=== PATIENT | male | born 1970 | race Asian ===

== ENCOUNTER 2016-09-17 23:01 | Emergency (ER) | payer SELFPAY ==
[~2016-09-17] VITALS: Ht 170.2 cm; Wt 109.1 kg
[~2016-09-17 23:01] MED LIST: RISP.5 PO
[2016-09-17 23:27] LABS: BASOPHILS % (AUTO) 0.5 % (0.0-2.0); EOSINOPHILS % (AUTO) 0.2 % (1.0-6.0); HEMOGLOBIN 14.5 g/dL (13.5-17.5); LYMPHOCYTES # (AUTO) 1.1 K/uL (1.0-4.8); LYMPHOCYTES % (AUTO) 7.5 % (22.0-44.0); MEAN CORPUSCULAR HGB CONC 32.9 G/dL (31.0-37.0); MEAN CORPUSCULAR VOLUME 91 fL (80-100); MONOCYTES # (AUTO) 1.4 K/uL (0.1-1.0); MONOCYTES % (AUTO) 9.5 % (2.0-9.0); NEUTROPHILS # (AUTO) 12.2 K/uL (1.8-7.7); NEUTROPHILS % (AUTO) 82.3 % (40.0-70.0); PLATELET COUNT (AUTO) 324 K/uL (150-450); RED BLOOD CELL COUNT(AUTO) 4.82 MIL/uL (4.50-5.90); RED CELL DISTRIBUTION WIDTH 13.6 % (11.5-14.5); WHITE BLOOD COUNT (AUTO) 14.8 K/uL (4.5-11.0)
[2016-09-17 23:37] LABS: ANION GAP 11 mmol/L (8-16); CALCIUM, TOTAL 8.8 mg/dL (8.8-10.5); CARBON DIOXIDE 27 mmol/L (22-29); CHLORIDE 104 mmol/L (98-107); CREATININE 1.44 mg/dL (0.60-1.30); GLOMERULAR FILTR. RATE CALC 52 mL/min (>60); POTASSIUM 3.6 mmol/L (3.5-5.1); SODIUM SERUM 142 mmol/L (136-145); UREA NITROGEN, BLOOD 20 mg/dL (7-18)
[2016-09-17 23:42] LABS: ALANINE AMINOTRANSFERASE 25 U/L (12-78); ALBUMIN 3.6 g/dL (3.4-5.0); ASPARTATE AMINOTRANSFERASE 25 U/L (15-37); BILIRUBIN,TOTAL 0.5 mg/dL (0.1-1.0); TOTAL PROTEIN, SERUM 7.4 g/dL (6.4-8.2)
[2016-09-18] MEDS ORDERED: HALOPERIDOL 5 MG TABLET PO ONE (01:00)
[2016-09-18] MEDS ORDERED: RisperiDONE CONC 3 MG/3 ML SOLUTION ORAL.SYG PO ONE (01:00)
[2016-09-18] MEDS ORDERED: LORazepam 2 MG TABLET PO ONE (01:00)
[2016-09-18] MEDS ORDERED: RisperiDONE 3 MG TABLET PO ONE (01:15)
[2016-09-18 09:40] VITALS: BP 128/86
== END 2016-09-18 11:54 | disposition home or self-care (01) ==
LOC: EMS 23:02
DX: F25.9 Schizoaffective disorder, unspecified (principal); F15.159 Other stimulant abuse with stimulant-induced psychotic disorder, unspecified
CPT/HCPCS: 36415; 80053; 80307; 85025; 99285; G0480

== ENCOUNTER 2016-10-07 05:50 | Inpatient (IN) | payer MEDICAID ==
[~2016-10-07] VITALS: Ht 170.2 cm; Wt 82.5 kg
[2016-10-07 06:25] LABS: BASOPHILS % (AUTO) 0.3 % (0.0-2.0); EOSINOPHILS % (AUTO) 0 % (1.0-6.0); HEMOGLOBIN 14.8 g/dL (13.5-17.5); LYMPHOCYTES # (AUTO) 0.7 K/uL (1.0-4.8); LYMPHOCYTES % (AUTO) 3.4 % (22.0-44.0); MEAN CORPUSCULAR HEMOGLOBIN 29.8 pg (26.0-34.0); MEAN CORPUSCULAR HGB CONC 32.9 G/dL (31.0-37.0); MEAN CORPUSCULAR VOLUME 91 fL (80-100); MONOCYTES # (AUTO) 1.6 K/uL (0.1-1.0); MONOCYTES % (AUTO) 7.6 % (2.0-9.0); NEUTROPHILS # (AUTO) 18.4 K/uL (1.8-7.7); PLATELET COUNT (AUTO) 338 K/uL (150-450); RED BLOOD CELL COUNT(AUTO) 4.96 MIL/uL (4.50-5.90); RED CELL DISTRIBUTION WIDTH 13.4 % (11.5-14.5); WHITE BLOOD COUNT (AUTO) 20.8 K/uL (4.5-11.0)
[2016-10-07 06:28] LABS: NEUTROPHILS % (AUTO) 88.7 % (40.0-70.0)
[2016-10-07 06:37] LABS: ANION GAP 17 mmol/L (8-16); CALCIUM, TOTAL 9.5 mg/dL (8.8-10.5); CARBON DIOXIDE 20 mmol/L (22-29); CHLORIDE 104 mmol/L (98-107); CREATININE 2.15 mg/dL (0.60-1.30); GLOMERULAR FILTR. RATE CALC 33 mL/min (>60); POTASSIUM 3.4 mmol/L (3.5-5.1); SODIUM SERUM 141 mmol/L (136-145); UREA NITROGEN, BLOOD 26 mg/dL (7-18)
[2016-10-07 06:42] LABS: ALANINE AMINOTRANSFERASE 11 U/L (12-78); ASPARTATE AMINOTRANSFERASE 26 U/L (15-37); BILIRUBIN,TOTAL 0.6 mg/dL (0.1-1.0); TOTAL PROTEIN, SERUM 7.7 g/dL (6.4-8.2)
[2016-10-07] MEDS ORDERED: MUPIROCIN CALCIUM 2% 22 GM OINTMENT TP ONE (07:00)
[2016-10-07] MEDS ORDERED: PERTUSS(ACELL),DIPH,TET VAC/PF 0.5 ML VIAL IM ONE (07:00)
[2016-10-07] MEDS: SULFAMETHOX/TRIMETH DS 800-160 MG/TABLET PO ONE ×2 (07:12→07:47)
[2016-10-07] MEDS ORDERED: LORazepam 2 MG/ML VIAL IM ONE (07:30)
[2016-10-07] MEDS ORDERED: HALOPERIDOL LACTATE 5 MG/ML VIAL IM ONE (07:30)
[2016-10-07] MEDS ORDERED: DiphenhydrAMINE HCL 50 MG/ML VIAL IM ONE (07:30)
[2016-10-07] MEDS ORDERED: MAGNESIUM SULFATE 2 GM, MVI, ADULT NO.1 WITH VIT K 10 ML, THIAMINE HCL 100 MG, FOLIC AC... IV ONE ×5 (07:45)
[2016-10-07] MEDS ORDERED: SODIUM CHLORIDE 0.9% 1,000 ML IV ONE (07:45)
[2016-10-07] MEDS ORDERED: HALOPERIDOL 5 MG TABLET PO PRN (08:15)
[2016-10-07] MEDS ORDERED: ZOLPIDEM TARTRATE 10 MG TABLET PO PRN (08:15)
[2016-10-07] MEDS ORDERED: LORazepam 2 MG TABLET PO PRN (08:15)
[2016-10-07 11:16] LABS: APPEARANCE,URINE CLEAR (CLEAR); GLUCOSE, URINE (UA) NEGATIVE (NEGATIVE); KETONES,URINE TRACE mg/dL (NEGATIVE); LEUKOCYTE ESTERASE ,URINE NEGATIVE (NEGATIVE); OCCULT BLOOD,URINE NEGATIVE (NEGATIVE); PROTEIN,URINE NEGATIVE (NEGATIVE)
[2016-10-07 11:21] LABS: ADD UA MICROSCOPIC NO
[2016-10-07 12:29] VITALS: BP 131/53
[2016-10-07] MEDS: RisperiDONE 1 MG TABLET PO SCH (17:00)
[2016-10-08] MEDS: RisperiDONE 1 MG TABLET PO SCH ×2 (09:00→17:26)
[2016-10-08 09:14] VITALS: BP 142/85
[2016-10-08] MEDS: BACITRACIN 28.4 GM OINTMENT TP SCH ×3 (14:23→17:26)
[2016-10-08] MEDS ORDERED: ACETAMINOPHEN 325 MG TABLET PO PRN ×2 (18:15→20:15)
[2016-10-08 18:27] VITALS: BP 146/83
[2016-10-08] MEDS ORDERED: IBUPROFEN 400 MG TABLET PO PRN (20:15)
[2016-10-08 20:34] VITALS: BP 138/88
[2016-10-08] MEDS: AmLODIPine BESYLATE 5 MG TABLET PO SCH (20:35)
[2016-10-09 07:12] LABS: HEMOGLOBIN A1C 5.2 % (4.5-6.2)
[2016-10-09 07:16] LABS: CHOL/HDL RATIO 2.5 (4.2-7.3); THYROID STIMULATING HORMONE 1.3 uIU/mL (0.36-3.74)
[2016-10-09] MEDS: RisperiDONE 1 MG TABLET PO SCH ×2 (09:26→16:14)
[2016-10-09] MEDS: BACITRACIN 28.4 GM OINTMENT TP SCH ×2 (09:26→16:14)
[2016-10-09 09:48] VITALS: BP 140/69
[2016-10-09 12:19] VITALS: BP 139/70
[2016-10-09] MEDS: CEPHALEXIN MONOHYDRATE 500 MG CAPSULE PO SCH (16:10)
[2016-10-09] MEDS: SULFAMETHOX/TRIMETH DS 800-160 MG/TABLET PO SCH (16:10)
[2016-10-09 20:17] VITALS: BP 115/60
[2016-10-09] MEDS: AmLODIPine BESYLATE 5 MG TABLET PO SCH (20:18)
[2016-10-10] MEDS: CEPHALEXIN MONOHYDRATE 500 MG CAPSULE PO SCH ×4 (01:06→16:06)
[2016-10-10 06:52] LABS: BASOPHILS % (AUTO) 0.4 % (0.0-2.0); EOSINOPHILS % (AUTO) 3.1 % (1.0-6.0); HEMATOCRIT 44.4 % (41-53); HEMOGLOBIN 14.5 g/dL (13.5-17.5); LYMPHOCYTES # (AUTO) 1.6 K/uL (1.0-4.8); LYMPHOCYTES % (AUTO) 22.1 % (22.0-44.0); MEAN CORPUSCULAR HEMOGLOBIN 30.2 pg (26.0-34.0); MEAN CORPUSCULAR HGB CONC 32.7 G/dL (31.0-37.0); MEAN CORPUSCULAR VOLUME 92 fL (80-100); MONOCYTES # (AUTO) 0.8 K/uL (0.1-1.0); MONOCYTES % (AUTO) 10.6 % (2.0-9.0); NEUTROPHILS # (AUTO) 4.7 K/uL (1.8-7.7); NEUTROPHILS % (AUTO) 63.8 % (40.0-70.0); PLATELET COUNT (AUTO) 324 K/uL (150-450); RED CELL DISTRIBUTION WIDTH 13.9 % (11.5-14.5); WHITE BLOOD COUNT (AUTO) 7.4 K/uL (4.5-11.0)
[2016-10-10 08:05] VITALS: BP 126/70
[2016-10-10] MEDS: SULFAMETHOX/TRIMETH DS 800-160 MG/TABLET PO SCH ×2 (08:40→17:17)
[2016-10-10] MEDS: RisperiDONE 1 MG TABLET PO SCH ×2 (08:40→17:17)
[2016-10-10] MEDS: BACITRACIN 28.4 GM OINTMENT TP SCH ×2 (08:45→17:16)
[2016-10-10] MEDS ORDERED: POVIDONE-IODINE 30 GM OINTMENT TP ONE (11:53)
[2016-10-10] MEDS ORDERED: BUPIVACAINE HCL/PF 0.25% 30 ML VIAL ONE (11:54)
[2016-10-10] MEDS ORDERED: LIDOCAINE HCL/PF 1% 30 ML VIAL ONE (11:54)
[2016-10-10] MEDS ORDERED: BUPIVACAINE HCL/PF 0.5% 30 ML VIAL ONE (11:58)
[2016-10-10] MEDS ORDERED: PROPOFOL 1% 20 ML VIAL IVP ONE (12:00)
[2016-10-10 13:21] LABS: ANION GAP 9 mmol/L (8-16); CARBON DIOXIDE 27 mmol/L (22-29); CHLORIDE 105 mmol/L (98-107); CREATININE 0.81 mg/dL (0.60-1.30); GLOMERULAR FILTR. RATE CALC > 60 mL/min (>60); POTASSIUM 4.5 mmol/L (3.5-5.1); SODIUM SERUM 141 mmol/L (136-145); UREA NITROGEN, BLOOD 13 mg/dL (7-18)
[2016-10-10] MEDS ORDERED: RINGERS SOLUTION,LACTATED 1,000 ML IV ONE ×2 (14:01→14:15)
[2016-10-10] MEDS ORDERED: ACETAMINOPHEN/CODEINE 300-30 MG TABLET PO PRN (16:30)
[2016-10-10] MEDS: AmLODIPine BESYLATE 5 MG TABLET PO SCH (21:20)
[2016-10-10 21:32] VITALS: BP 125/76
[2016-10-11] MEDS: CEPHALEXIN MONOHYDRATE 500 MG CAPSULE PO SCH ×2 (00:08→08:27)
[2016-10-11 07:04] LABS: ANION GAP 10 mmol/L (8-16); CALCIUM, TOTAL 8.8 mg/dL (8.8-10.5); CARBON DIOXIDE 27 mmol/L (22-29); CHLORIDE 104 mmol/L (98-107); CREATININE 0.94 mg/dL (0.60-1.30); GLOMERULAR FILTR. RATE CALC > 60 mL/min (>60); POTASSIUM 4.8 mmol/L (3.5-5.1); SODIUM SERUM 141 mmol/L (136-145); UREA NITROGEN, BLOOD 12 mg/dL (7-18)
[2016-10-11] MEDS: RisperiDONE 1 MG TABLET PO SCH (08:24)
[2016-10-11] MEDS: SULFAMETHOX/TRIMETH DS 800-160 MG/TABLET PO SCH (08:24)
[2016-10-11] MEDS: BACITRACIN 28.4 GM OINTMENT TP SCH (08:25)
[2016-10-11 09:03] VITALS: BP 143/79
[2016-10-11] MEDS ORDERED: RISP1 PO (12:19)
[2016-10-11] MEDS ORDERED: BACTDSB PO (12:56)
[2016-10-11] MEDS ORDERED: CEPH500 PO (12:56)
[2016-10-11] MEDS ORDERED: AMLO-511 PO (12:56)
[2016-10-11] MEDS ORDERED: BACI30OI10 TP (12:56)
== END 2016-10-11 14:30 | disposition home or self-care (01) | DRG 750 ==
LOC: EMS 05:51 → 3EC 08:30
PROVIDERS: ADMIT Psychiatry & Neurology Psychiatry; ATTEND Psychiatry & Neurology Psychiatry
PROC: 3E0234Z Introduction of Serum, Toxoid and Vaccine into Muscle, Percutaneous Approach (ICD-10-PCS; 2016-10-07)
PROC: 0JCR0ZZ Extirpation of Matter from Left Foot Subcutaneous Tissue and Fascia, Open Approach (ICD-10-PCS; principal; 2016-10-10 15:15)
DX: F25.9 Schizoaffective disorder, unspecified (principal); L03.115 Cellulitis of right lower limb; I10 Essential (primary) hypertension; F32.9 Major depressive disorder, single episode, unspecified; D72.829 Elevated white blood cell count, unspecified; S91.342A Puncture wound with foreign body, left foot, initial encounter; L03.116 Cellulitis of left lower limb; Z53.29 Procedure and treatment not carried out because of patient's decision for other reasons; F15.90 Other stimulant use, unspecified, uncomplicated; F19.10 Other psychoactive substance abuse, uncomplicated; X58.XXXA Exposure to other specified factors, initial encounter; E87.6 Hypokalemia; S90.852A Superficial foreign body, left foot, initial encounter; Y92.89 Other specified places as the place of occurrence of the external cause; Y99.8 Other external cause status; Y93.89 Activity, other specified; Z71.51 Drug abuse counseling and surveillance of drug abuser; Z78.1 Physical restraint status; Z23 Encounter for immunization; Z79.899 Other long term (current) drug therapy
CPT/HCPCS: 71020; 83036; 83605; 84443; 88300; 90471; 90715; 96365; 96372; 99285; G0480; J1200; J1630; J2060; J2704; J3411; J3475; J3490; J7030; J7120

== ENCOUNTER 2017-02-16 17:39 | Emergency (ER) | payer MEDICAID, OTHER ==
[~2017-02-16] VITALS: Ht 170.2 cm; Wt 81.8 kg
[~2017-02-16 17:39] MED LIST changes: +AMLO-511 PO; +BACI30OI10 TP; +BACTDSB PO; +CEPH500 PO; -RISP.5 PO; +RISP1 PO
[2017-02-16 19:26] VITALS: BP 148/98
== END 2017-02-16 19:47 | disposition home or self-care (01) ==
LOC: EMS 17:46
DX: M79.671 Pain in right foot (principal); G89.29 Other chronic pain
CPT/HCPCS: 99281

== ENCOUNTER 2022-06-17 13:47 | Emergency (ER) | payer MEDICAID, OTHER ==
[~2022-06-17] VITALS: Ht 170.2 cm; Wt 109.0 kg
[~2022-06-17 13:47] MED LIST changes: +AMLO-257 PO; -AMLO-511 PO; +CEPH-558 PO; -CEPH500 PO; -RISP1 PO; +RISP1TAB48 PO
[2022-06-17] MEDS ORDERED: BUPR-50 PO (13:53)
[2022-06-17] MEDS ORDERED: GABA-1201 PO (13:53)
[2022-06-17] MEDS ORDERED: RISP4TAB73 PO (13:53)
[2022-06-17 14:01] VITALS: BP 147/87
[2022-06-17 14:29] LABS: AMPHET/METH SCREEN,URINE NEGATIVE (NEGATIVE); BARBITURATE SCREEN, URINE NEGATIVE (NEGATIVE); BENZODIAZEPINES SCREEN,URINE NEGATIVE (NEGATIVE); CANNABINOID SCREEN,URINE NEGATIVE (NEGATIVE); COCAINE SCREEN,URINE NEGATIVE (NEGATIVE); METHADONE SCREEN, URINE NEGATIVE (NEGATIVE); OPIATE SCREEN,URINE NEGATIVE (NEGATIVE)
[2022-06-17 14:44] LABS: PHENCYCLIDINE SCREEN,URINE NEGATIVE (NEGATIVE)
== END 2022-06-17 15:04 | disposition home or self-care (01) ==
LOC: EMS 14:18
DX: F20.9 Schizophrenia, unspecified (principal)
CPT/HCPCS: 80307; 99283

== ENCOUNTER 2023-03-02 09:13 | Emergency (ER) | payer MEDICAID ==
[~2023-03-02] VITALS: Ht 167.6 cm; Wt 125.5 kg
[~2023-03-02 09:13] MED LIST changes: -AMLO-257 PO; -BACI30OI10 TP; -BACTDSB PO; +BUPR-50 PO; -CEPH-558 PO; +GABA-1201 PO; -RISP1TAB48 PO; +RISP4TAB73 PO
[2023-03-02 09:24] VITALS: BP 131/76; PULSE 76; RESP 18; TEMP 97.9
[2023-03-02 10:43] LABS: PH,URINE DRUG SCREEN 6.5 (5.0-8.0)
[2023-03-02 10:51] LABS: ALCOHOL, URINE DRUG SCREEN NEGATIVE (NEGATIVE); AMPHET/METH SCREEN,URINE NEGATIVE (NEGATIVE); BARBITURATE SCREEN, URINE NEGATIVE (NEGATIVE); BENZODIAZEPINES SCREEN,URINE NEGATIVE (NEGATIVE); CANNABINOID SCREEN,URINE NEGATIVE (NEGATIVE); COCAINE SCREEN,URINE NEGATIVE (NEGATIVE); METHADONE SCREEN, URINE NEGATIVE (NEGATIVE); OPIATE SCREEN,URINE NEGATIVE (NEGATIVE); PHENCYCLIDINE SCREEN,URINE NEGATIVE (NEGATIVE)
== END 2023-03-02 11:29 | disposition home or self-care (01) ==
LOC: EMS 09:15
DX: Z02.83 Encounter for blood-alcohol and blood-drug test (principal); F20.9 Schizophrenia, unspecified
CPT/HCPCS: 80307; 99283

== ENCOUNTER 2023-05-22 09:17 | Emergency (ER) | payer MEDICARE, MEDICAID ==
[~2023-05-22] VITALS: Ht 170.2 cm; Wt 86.4 kg
[2023-05-22 09:27] VITALS: TEMP 98
[2023-05-22] MEDS ORDERED: METHOCARBAMOL 500 MG TABLET PO ONE (10:30)
[2023-05-22] MEDS ORDERED: KETOROLAC TROMETHAMINE 60 MG/2 ML VIAL IM ONE (10:30)
[2023-05-22 10:45] VITALS: BP 130/70; PULSE 65; RESP 12
[2023-05-22] MEDS ORDERED: IBUP-1492 PO (10:46)
[2023-05-22] MEDS ORDERED: METH-659 PO (10:47)
== END 2023-05-22 11:01 | disposition home or self-care (01) ==
LOC: EMS 09:17
DX: S39.012A Strain of muscle, fascia and tendon of lower back, initial encounter (principal); M53.3 Sacrococcygeal disorders, not elsewhere classified; F20.9 Schizophrenia, unspecified; X58.XXXA Exposure to other specified factors, initial encounter; Y93.89 Activity, other specified; Y92.89 Other specified places as the place of occurrence of the external cause; Y99.8 Other external cause status
CPT/HCPCS: 99283; 96372; J1885